=== PATIENT | female | born 2005 | race Caucasian/White ===

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

== ENCOUNTER 2025-03-26 12:57 | Emergency (ER) | payer MEDICAID, OTHER ==
[~2025-03-26] VITALS: Ht 162.6 cm; Wt 54.5 kg
[~2025-03-26 12:57] MED LIST changes: -IBUP-1022 PO; +IBUP600T42 PO; +LIDO15SO8 PO; -LIDO2SOL17 PO; +NITR100C3 PO; +PHEN-372 PO
[2025-03-26 13:43] LABS: KETONE, URINE AUTO RFX NEGATIVE (NEGATIVE); MUCUS, URINE RFX SMALL (NEGATIVE); RBC, URINE AUTO RFX 15 /HPF (0-3); SQUAM EPITHELIAL CELL UR AURFX 2 /HPF (0-6); TRANSITIONAL EPITHELIAL AU RFX 2 /HPF
[2025-03-26 13:46] LABS: LEUKOCYTE ESTERASE UR AUTO RFX 3+ (NEGATIVE); NITRITE, URINE AUTO RFX POSITIVE (NEGATIVE); WBC, URINE AUTO RFX TNTC /HPF (0-3)
[2025-03-26] MEDS ORDERED: NITR100C3 PO (14:18)
[2025-03-26] MEDS ORDERED: PYRI1TAB5 PO (14:20)
[2025-03-26 14:27] VITALS: BP 115/81; TEMP 97.8; O2SAT 97
[2025-03-26 15:43] LABS: Trichomonas vaginalis (AMP) NOT DETECTED (NEGATIVE)
[2025-03-26 16:07] LABS: GC DNA AMPLIFICATION NEGATIVE (NEGATIVE)
== END 2025-03-26 14:31 | disposition home or self-care (01) ==
LOC: M ED 13:29
DX: N39.0 Urinary tract infection, site not specified (principal); F17.200 Nicotine dependence, unspecified, uncomplicated; Z79.2 Long term (current) use of antibiotics; Z79.899 Other long term (current) drug therapy